=== PATIENT | male | born 1940 | race Caucasian/White ===

== ENCOUNTER 2021-12-10 06:48 | Day surgery (SDC) | payer MEDICARE, OTHER ==
[~2021-12-10] VITALS: Ht 172.7 cm; Wt 97.9 kg
[2021-12-10] VITALS (9 sets, daily range): BP systolic 96–145; BP diastolic 60–96
[2021-12-10] MEDS ORDERED: albumin 25% 100mL bottle x 1 IV PRN (07:10)
[2021-12-10] MEDS ORDERED: GLIM4TAB7 PO (07:51)
[2021-12-10] MEDS ORDERED: ROSU10TA28 PO (07:51)
[2021-12-10] MEDS ORDERED: CYCL-1 PO (07:51)
[2021-12-10] MEDS ORDERED: EMPA25TA PO (07:51)
[2021-12-10] MEDS ORDERED: PIOG45TA65 PO (07:51)
[2021-12-10] MEDS ORDERED: LIDOcaine 1%/PF 5ML 10 MG/ML VIAL SQ ONE (08:00)
[2021-12-10 12:40] LABS: GLUCOSE,BODY FLUID 167 MG/DL; TOTAL PROTEIN,BODY FLUID 4.1 G/DL
[2021-12-10 12:57] LABS: BF MESOTHELIAL CELLS FEW; BF RBC COUNT 300 /CU MM; BF WBC COUNT 1330 /CU MM (0-1000); BFAPPEAR HAZY; BFCOLOR YELLOW; BFVOLUME 48 ML; EOSINOPHILS,BODY FLUID 1 %; LYMPHOCYTES,BODY FLUID 93 %; MONOCYTES,BODY FLUID 5 %; NEUTROPHILS,BODY FLUID 1 %
== END 2021-12-10 10:15 | disposition home or self-care (01) ==
LOC: SSTAY O 06:48
PROVIDERS: ATTEND Preventive Medicine Aerospace Medicine
DX: J90 Pleural effusion, not elsewhere classified (principal); E11.40 Type 2 diabetes mellitus with diabetic neuropathy, unspecified; I10 Essential (primary) hypertension; E78.5 Hyperlipidemia, unspecified; Z88.0 Allergy status to penicillin; Z79.899 Other long term (current) drug therapy; Z79.84 Long term (current) use of oral hypoglycemic drugs
CPT/HCPCS: 32555; 82945; 84157; 87070; 89051; J3490; 88108; 88305

== ENCOUNTER 2022-01-15 13:13 | Emergency (ER) | payer MEDICARE, OTHER ==
[~2022-01-15] VITALS: Ht 172.7 cm; Wt 200.0 kg
[~2022-01-15 13:13] MED LIST: CYCL-1 PO; EMPA25TA PO; GLIM4TAB7 PO; PIOG45TA65 PO; ROSU10TA28 PO
[2022-01-15 14:52] LABS: BASOPHILS % (AUTO) 0.2 % (0-1); EOSINOPHILS # (AUTO) 0.1 X10'3 (0-0.9); EOSINOPHILS % (AUTO) 0.9 % (0-6); HEMOGLOBIN 17.5 g/dl (14.0-17.9); LYMPHOCYTES % (AUTO) 15.8 % (21-51); MEAN CORPUSCULAR HEMOGLOBIN 30.1 PG (27.0-31.0); MEAN CORPUSCULAR VOLUME 91.2 FL (78-98); MEAN PLATELET VOLUME 8.3 FL (7.4-10.4); MONOCYTES # (AUTO) 1.1 X10'3 (0-0.9); MONOCYTES % (AUTO) 17.8 % (2-12); NEUTROPHILS % (AUTO) 65.3 % (42-75); PLATELET COUNT 221 X10'3 (140-440); RED BLOOD COUNT 5.81 X10'6 (4.70-6.10); WHITE BLOOD COUNT 6.1 X10'3 (4.5-11.0)
[2022-01-15 15:08] LABS: ALANINE AMINOTRANSFERASE 16 U/L (12-78); ALBUMIN/GLOBULIN RATIO 0.6 (1.1-1.5); ALKALINE PHOSPHATASE 82 IU/L (46-116); ANION GAP 8 (8-16); ASPARTATE AMINO TRANSFERASE 17 U/L (10-37); BILIRUBIN,TOTAL 0.7 MG/DL (0.1-1.0); BLOOD UREA NITROGEN 13 MG/DL (7-18); BUN/CREATININE RATIO 13.5 (5.4-32.0); CHLORIDE 98 MMOL/L (99-107); CREATININE 0.96 MG/DL (0.60-1.10); GLUCOSE 182 MG/DL (70-104); SODIUM 135 MMOL/L (135-145); TOTAL CARBON DIOXIDE 28.6 MMOL/L (24-32); TOTAL PROTEIN 7.9 G/DL (6.4-8.2); eGFR 76 ML/MIN
[2022-01-15 15:12] LABS: PLATELET ESTIMATE NORMAL; TOTAL CELLS COUNTED 100
[2022-01-15] MEDS ORDERED: IOHEXOL 300 MG/ML 30ML INFUS..BTL IV ONE (15:43)
[2022-01-15] MEDS ORDERED: normal saline 1000ML IV soln IVB ONE (15:50)
[2022-01-15] MEDS ORDERED: BEBTELOVIMAB 175 MG/2 ML VIAL IV ONE (16:35)
[2022-01-15] MEDS ORDERED: CefTRIAXone 2gm/NS 100ml IVPB 100 ML IV ONE (17:30)
[2022-01-15 17:53] VITALS: BP 148/88
[2022-01-15] MEDS ORDERED: NIRM1TAB PO (18:55)
--- NOTE | 2022-01-16 20:05 | NUR ---
Positive blood culture, gram positive cocci clusters in aerobic bottle drawn on 01-15-22, was called by the lab, pt had left AMA yesterday. ER MD was notified of result, call out to patient. Pt states he is feeling better, no s/s of sepsis, specimen was possibly contaminated. Pt was encouraged to return to the ER if he begins running fevers or feels sicker.
== END 2022-01-15 19:46 | disposition left against medical advice (07) ==
LOC: ER 13:13
DX: U07.1 COVID-19 (principal); J90 Pleural effusion, not elsewhere classified; R00.0 Tachycardia, unspecified; J18.9 Pneumonia, unspecified organism; E11.9 Type 2 diabetes mellitus without complications; Z88.0 Allergy status to penicillin; Z79.899 Other long term (current) drug therapy
CPT/HCPCS: 36415; 71045; 71260; 80053; 83605; 83880; 84145; 85007; 85025; 87040; 87077; 87186; 93005; 96361; 96365; 99285; J0696; J7030; Q0222; M0222

== ENCOUNTER 2022-03-19 07:04 | Day surgery (SDC) | payer MEDICARE, OTHER ==
[~2022-03-19] VITALS: Ht 175.3 cm; Wt 93.8 kg
[~2022-03-19 07:04] MED LIST changes: +NIRM1TAB PO
[2022-03-19 07:26] VITALS: BP 127/80
[2022-03-19] MEDS ORDERED: LIDOcaine 1% 30ml preserv. free vial SQ STA (07:37)
[2022-03-19 09:40] VITALS: BP 135/94
[2022-03-19 10:00] VITALS: BP 134/85
[2022-03-19 10:15] VITALS: BP 131/83
[2022-03-19 10:30] VITALS: BP 136/66
== END 2022-03-19 10:35 | disposition home or self-care (01) ==
LOC: SSTAY O 07:04
PROVIDERS: ATTEND Preventive Medicine Aerospace Medicine
DX: J90 Pleural effusion, not elsewhere classified (principal); E11.40 Type 2 diabetes mellitus with diabetic neuropathy, unspecified; E78.5 Hyperlipidemia, unspecified; I10 Essential (primary) hypertension; E11.51 Type 2 diabetes mellitus with diabetic peripheral angiopathy without gangrene; Z88.0 Allergy status to penicillin; Z79.899 Other long term (current) drug therapy; Z98.890 Other specified postprocedural states
CPT/HCPCS: 32555; 87070

== ENCOUNTER 2022-05-10 07:10 | Day surgery (SDC) | payer MEDICARE, OTHER ==
[~2022-05-10] VITALS: Ht 175.3 cm; Wt 93.6 kg
[2022-05-10] VITALS (9 sets, daily range): BP systolic 121–143; BP diastolic 69–84
[~2022-05-10 07:10] MED LIST changes: +LIDOcaine 1% 30ml preserv. free vial SQ STA; -NIRM1TAB PO
[2022-05-10] MEDS ORDERED: albumin 25% 100mL bottle x 1 IV PRN (07:35)
== END 2022-05-10 10:00 | disposition home or self-care (01) ==
LOC: SSTAY O 07:10
PROVIDERS: ATTEND Radiology Vascular & Interventional Radiology
DX: J90 Pleural effusion, not elsewhere classified (principal); I10 Essential (primary) hypertension; E78.5 Hyperlipidemia, unspecified; I73.9 Peripheral vascular disease, unspecified; E11.40 Type 2 diabetes mellitus with diabetic neuropathy, unspecified; J44.9 Chronic obstructive pulmonary disease, unspecified; Z87.891 Personal history of nicotine dependence; Z79.899 Other long term (current) drug therapy; Z98.890 Other specified postprocedural states; Z88.6 Allergy status to analgesic agent
CPT/HCPCS: 32555; J3490; A6258

== ENCOUNTER 2022-07-16 11:33 | Outpatient (CLI) | payer MEDICARE, OTHER ==
[~2022-07-16 11:33] MED LIST changes: -CYCL-1 PO; -LIDOcaine 1% 30ml preserv. free vial SQ STA; +LOP12.5T PO; +PER5325T PO
== END 2022-07-16 23:59 | disposition home or self-care (01) ==
LOC: RAD 11:33
PROVIDERS: ATTEND Thoracic Surgery (Cardiothoracic Vascular Surgery)
DX: J90 Pleural effusion, not elsewhere classified (principal); G89.12 Acute post-thoracotomy pain
CPT/HCPCS: 71046; 71260; Q9967; 71250

== ENCOUNTER 2022-07-29 15:39 | Outpatient (CLI) | payer MEDICARE, OTHER | END 2022-07-29 23:59 | disposition home or self-care (01) | LOC: RAD 15:39 | PROVIDERS: ATTEND Thoracic Surgery (Cardiothoracic Vascular Surgery) | DX: J98.4 Other disorders of lung (principal); J90 Pleural effusion, not elsewhere classified | CPT/HCPCS: 71046 ==